=== PATIENT | female | born 1955 | race Caucasian/White ===

== ENCOUNTER 2020-07-06 12:54 | Outpatient (CLI) | payer MEDICARE, OTHER | END 2020-07-06 12:55 | disposition home or self-care (01) | LOC: CSHULT 12:54 → EEVIPCON 12:54 → CSHULT 12:55 | PROVIDERS: ATTEND Internal Medicine Endocrinology, Diabetes & Metabolism | DX: E04.1 Nontoxic single thyroid nodule (principal) | CPT/HCPCS: 76536 ==

== ENCOUNTER 2021-07-31 13:58 | Outpatient (CLI) | payer MEDICARE, OTHER ==
[2021-07-31] MEDS ORDERED: Iopamidol 300 61% 100 ML VIAL FS ONE (15:33)
== END 2021-07-31 13:59 | disposition home or self-care (01) ==
LOC: CSHCT 13:58
PROVIDERS: ATTEND Obstetrics & Gynecology Gynecologic Oncology
DX: D39.12 Neoplasm of uncertain behavior of left ovary (principal); M47.814 Spondylosis without myelopathy or radiculopathy, thoracic region; M47.816 Spondylosis without myelopathy or radiculopathy, lumbar region
CPT/HCPCS: 74177; 82565; Q9967

== ENCOUNTER 2022-01-02 13:10 | Outpatient (CLI) | payer MEDICARE, OTHER | END 2022-01-02 13:11 | disposition home or self-care (01) | LOC: CSHMRI 13:10 | PROVIDERS: ATTEND Clinical Nurse Specialist Medical-Surgical | DX: M47.24 Other spondylosis with radiculopathy, thoracic region (principal); M47.22 Other spondylosis with radiculopathy, cervical region | CPT/HCPCS: 72146; 72148 ==

== ENCOUNTER 2022-02-14 12:36 | Outpatient (CLI) | payer MEDICARE, OTHER ==
[~2022-02-14 12:36] MED LIST: Iopamidol 300 61% 50 ML VIAL FS ONE
== END 2022-02-14 12:37 | disposition home or self-care (01) ==
LOC: CSHCT 12:36
PROVIDERS: ATTEND Nurse Practitioner Family
DX: C56.1 Malignant neoplasm of right ovary (principal)
CPT/HCPCS: 74177; 82565; Q9967

== ENCOUNTER 2023-12-10 15:35 | Outpatient (CLI) | payer MEDICARE, OTHER | END 2023-12-10 15:36 | disposition home or self-care (01) | LOC: CSHMAMMO 15:35 | PROVIDERS: ATTEND Internal Medicine | DX: M85.851 Other specified disorders of bone density and structure, right thigh (principal); M85.852 Other specified disorders of bone density and structure, left thigh | CPT/HCPCS: 77080 ==